=== PATIENT | female | born 1975 | race Two or more races ===

== ENCOUNTER 2018-07-28 12:17 | Emergency (ER) | payer MEDICAID ==
[~2018-07-28] VITALS: Ht 152.4 cm; Wt 74.8 kg
[2018-07-28 12:55] VITALS: BP 115/74
--- NOTE | 2018-07-28 12:58 | NUR ---
ED Nurse Note:eval by wesley rain. reddened area to scalp noted that pt reports as itching. no drainage noted
--- NOTE | 2018-07-28 13:09 | Emergency Room Report ---
History of Present Illness General Chief Complaint: Skin Rash/Abscess Source: Patient Present Illness HPI 42-year-old female presents to the emergency department complaining of itchy rash that had acute onset on the scalp a day after dying her hair. Patient reports significant itching and scratching over the course of the last few days and now she is noticing red crusted bumps in certain areas. Denies pain. Patient denies fevers or chills she denies recent travel or ill contacts with similar symptoms. Pt. denies fevers, chills or swollen tender lymph nodes. Denies lesions/rashes elsewhere on the body. Denies new medications or body washes or creams. Denies swelling of the lips, tongue , throat or airway. Denies wheezing, or shortness of breath. Denies recent travel, recent illness or ill contacts. denies blisters, oral lesions, or sloughing of the skin Allergies: Coded Allergies: No Known Allergies (Unverified , 07/28/18) Patient History Past Medical History: see triage record Past Surgical History: none Pertinent Family History: none Immunizations: UTD Reviewed Nursing Documentation: PMH: Agreed; PSxH: Agreed Nursing Documentation-PMH Past Medical History: No Stated History Review of Systems All Other Systems: negative except mentioned in HPI Physical Exam Vital Signs Date Time Temp Pulse Resp B/P (MAP) Pulse Ox O2 Delivery O2 Flow Rate FiO2 07/28/18 12:30 97.5 69 14 115/74 95 Room Air Sp02 EP Interpretation: reviewed, normal General Appearance: no apparent distress, alert, GCS 15, non-toxic Head: normocephalic, atraumatic, other - Scalp rash of pruritic plaques and papules, some with crusting, no well defines boarders, generalized, migrating toward forehead and nape of neck, no blisters or vessicles. Eyes: bilateral eye normal inspection, bilateral eye PERRL ENT: hearing grossly normal, normal voice, uvula midline, other - no stridor, no swelling of the lips or tongue Neck: full range of motion Respiratory: chest non-tender, lungs clear, normal breath sounds, speaking full sentences Cardiovascular #1: regular rate, rhythm Musculoskeletal: back normal, gait/station normal, normal range of motion, non- tender Neurologic: alert, oriented x3, responsive, motor strength/tone normal, sensory intact, speech normal, grossly normal Psychiatric: judgement/insight normal Skin: warm/dry, well hydrated, rash - Scalp rash of pruritic plaques and papules, some with crusting, no well defines boarders, generalized, migrating toward forehead and nape of neck, no blisters or vessicles. Lymphatic: no adenopathy Medical Decision Making PA Attestation Dr. Blackwood is my supervising physician whom pt. management has been discussed with. Diagnostic Impression: Primary Impression: Dermatitis Additional Impression: Cellulitis Qualified Codes: L03.811 - Cellulitis of head [any part, except face] ER Course 42-year-old female presents to the emergency department complaining of itchy rash that had acute onset on the scalp a day after dying her hair. Patient reports significant itching and scratching over the course of the last few days and now she is noticing red crusted bumps in certain areas. Denies pain. Patient denies fevers or chills she denies recent travel or ill contacts with similar symptoms. Pt. denies fevers, chills or swollen tender lymph nodes. Denies lesions/rashes elsewhere on the body. Denies new medications or body washes or creams. Denies swelling of the lips, tongue , throat or airway. Denies wheezing, or shortness of breath. Denies recent travel, recent illness or ill contacts. denies blisters, oral lesions, or sloughing of the skin Ddx considered but are not limited to cellulitis, scabies, shingles, varicella, dermatitis, urticaria, eczema, tinea, viral exanthem, SJS Vital signs: are WNL, pt. is afebrile H&PE are most consistent with scalp dermatitis with secondary cellulitis ORDERS: none required at this time, the diagnosis is clinical ED INTERVENTIONS: None required at this time. DISCHARGE: At this time pt. is stable for d/c to home. Will provide printed patient care instructions, and any necessary prescriptions. Care plan and follow up instructions have been discussed with the patient prior to discharge. Last Vital Signs Date Time Temp Pulse Resp B/P (MAP) Pulse Ox O2 Delivery O2 Flow Rate FiO2 07/28/18 12:55 97.5 69 14 115/74 96 Room Air Disposition: HOME, SELF-CARE Condition: Stable Scripts Diphenhydramine Hcl (BENADRYL ALLERGY) 25 Mg Tablet 25 MG PO Q6HR, #20 TAB Prov: Rain Ascencio 07/28/18 Ketoconazole (NIZORAL) 120 Ml Shampoo 10 ML TP DAILY, #120 ML Prov: Rain Ascencio 07/28/18 Cephalexin* (KEFLEX*) 500 Mg Capsule 500 MG ORAL EVERY 12 HOURS for 7 Days, #14 CAP 0 Refills Prov: Rain Ascencio 07/28/18 Prednisone* (PREDNISONE*) 20 Mg Tablet 40 MG ORAL DAILY for 5 Days, #10 TAB Prov: Rain Ascencio 07/28/18 Referrals: [facility],REFERRING (PCP) Patient Instructions: Rash Additional Instructions: Take medications as directed. Follow up with a Primary Care Provider in 3-5 days, even if your symptoms have resolved. DERMATOLOGY EVAL IF SYMPTOMS PERSIST. --Please review list of primary care clinics, if you do not already have a primary care provider Return sooner to ED if new symptoms occur, or current symptoms become worse. Do not drink alcohol, drive, or operate heavy machinery while taking Benadryl as this may cause drowsiness. - Please note that this Emergency Department Report was dictated using [employer]th[employer] guard supervisor technology software, occasionally this can lead to erroneous entry secondary to interpretation by the dictation equipment. Rain Ascencio Jul 28, 2018 13:09
[2018-07-28] MEDS ORDERED: CEPHALEXIN500 MG ORAL (13:11)
[2018-07-28] MEDS ORDERED: BENADRYL ALLERG25 M1 PO (13:11)
[2018-07-28] MEDS ORDERED: PREDNISONE20 MG ORAL (13:11)
[2018-07-28] MEDS ORDERED: NIZORAL120 ML TP (13:11)
[2018-07-28] MEDS ORDERED: Solu-MEDROL 125mg Inj IM ONE (13:15)
[2018-07-28 13:50] VITALS: BP 124/78
--- NOTE | 2018-07-28 13:53 | NUR ---
ER DISCHARGE NOTE: Patient is cleared to be discharged per ERMD, pt is aox4, on room air, with stable vital signs. pt was given dc and prescription instructions, pt was able to verbalize understanding, pt id band removed. pt is able to ambulate with steady gait. pt took all belongings.
== END 2018-07-28 13:53 | disposition home or self-care (01) ==
LOC: EMR 12:55
DX: L30.9 Dermatitis, unspecified (principal); L03.811 Cellulitis of head [any part, except face]
CPT/HCPCS: 96372; 99283; J2930

== ENCOUNTER 2018-08-05 13:31 | Emergency (ER) | payer MEDICAID ==
[~2018-08-05] VITALS: Ht 152.4 cm; Wt 59.0 kg
[~2018-08-05 13:31] MED LIST: BENADRYL ALLERG25 M1 PO; CEPHALEXIN500 MG ORAL; NIZORAL120 ML TP; PREDNISONE20 MG ORAL
--- NOTE | 2018-08-05 14:12 | NUR ---
ED Nurse Note: PT WALKED IN TO ER TODAY FROM HOME. AOX4. PT C/O ITCHY SCALP X 2 WEEKS AGO. PT STATES SHE WAS SEEN AT [facility] ER FOR THE SAME SYMPTOMS AND WAS GIVEN RX FOR ANTIBIOTICS. PT STATES IT HELPED FOR A WHILE BUT ITCHING HAS PERSISTED EVEN AFTER COMPLIANCE WITH ANTIBIOTICS.
[2018-08-05 14:14] VITALS: BP 122/82
--- NOTE | 2018-08-05 14:25 | Emergency Room Report ---
History of Present Illness General Chief Complaint: Skin Rash/Abscess Source: Patient Present Illness HPI 42 YO female presents to the ED c/o Persistent scalp rashes, Pt. was seen 1 weeks ago with a rash which she reports has for the most part resolved, but new onset of different type of rash with clear fluid leaking, burning sensation on the side of her head x 2 days. no fevers or chills, no face, eye or nose involvement. Pt. denies fevers, chills or swollen tender lymph nodes. Denies lesions/rashes elsewhere on the body. Denies new medications or body washes or creams. Denies swelling of the lips, tongue , throat or airway. Denies wheezing , or shortness of breath. Denies recent travel, recent illness or ill contacts. denies blisters, oral lesions, or sloughing of the skin Allergies: Coded Allergies: No Known Allergies (Unverified , 07/28/18) Patient History Past Medical History: see triage record Past Surgical History: none Pertinent Family History: none Last Menstrual Period: 07/16/18 Now: No Reviewed Nursing Documentation: PMH: Agreed; PSxH: Agreed Nursing Documentation-PMH Past Medical History: No History, Except For Review of Systems All Other Systems: negative except mentioned in HPI Physical Exam Vital Signs Date Time Temp Pulse Resp B/P (MAP) Pulse Ox O2 Delivery O2 Flow Rate FiO2 08/05/18 13:36 98.1 81 18 123/78 97 Room Air Sp02 EP Interpretation: reviewed, normal General Appearance: no apparent distress, alert, GCS 15, non-toxic Head: normocephalic, atraumatic Eyes: bilateral eye normal inspection, bilateral eye PERRL ENT: hearing grossly normal, normal voice, other - vessicular rash on the right side of the scalp, clear drainage noted, no crusing, no sloughing of the skin, no purulence. Neck: full range of motion Respiratory: chest non-tender, lungs clear, normal breath sounds, speaking full sentences Cardiovascular #1: regular rate, rhythm Cardiovascular #2: 0 carotid (R), 0 carotid (L), 0 radial (R), 0 radial (L), 0 femoral (R), 0 femoral (L), 0 dorsalis pedis (R), 0 dorsalis pedis (L) Musculoskeletal: back normal, gait/station normal, normal range of motion, non- tender Neurologic: alert, oriented x3, responsive, motor strength/tone normal, sensory intact, speech normal, grossly normal Psychiatric: judgement/insight normal Skin: normal color, warm/dry, well hydrated, rash - vessicular rash on the right side of the scalp, clear drainage noted, no crusing, no sloughing of the skin, no purulence. Lymphatic: no adenopathy Medical Decision Making PA Attestation Dr. foss is my supervising Physician whom patient management has been discussed with. Diagnostic Impression: Primary Impression: Rash and other nonspecific skin eruption Additional Impression: Shingles rash Qualified Codes: B02.9 - Zoster without complications ER Course 42 YO female presents to the ED c/o Persistent scalp rashes, Pt. was seen 1 weeks ago with a rash which she reports has for the most part resolved, but new onset of different type of rash with clear fluid leaking, burning sensation on the side of her head x 2 days. no fevers or chills, no face, eye or nose involvement. Pt. denies fevers, chills or swollen tender lymph nodes. Denies lesions/rashes elsewhere on the body. Denies new medications or body washes or creams. Denies swelling of the lips, tongue , throat or airway. Denies wheezing , or shortness of breath. Denies recent travel, recent illness or ill contacts. denies blisters, oral lesions, or sloughing of the skin Ddx considered but are not limited to cellulitis, scabies, shingles, varicella, dermatitis, urticaria, eczema, tinea, viral exanthem, SJS Vital signs: are WNL, pt. is afebrile H&PE are most consistent with healing dermatitis, with new onset of shingles rash. ORDERS: none required at this time, the diagnosis is clinical ED INTERVENTIONS: N -Hydrocortisone 2.5% cream tp. -I do not identify an emergent condition at this time. With current presentation , pt. is stable for close outpatient follow up and conservative treatment. D/ w pt. to return promptly to ED with worsening or new symptoms.- Pt. verbalizes' understanding and agreement with proposed treatment plan. DISCHARGE: At this time pt. is stable for d/c to home. Will provide printed patient care instructions, and any necessary prescriptions. Care plan and follow up instructions have been discussed with the patient prior to discharge. Last Vital Signs Date Time Temp Pulse Resp B/P (MAP) Pulse Ox O2 Delivery O2 Flow Rate FiO2 08/05/18 14:14 98.2 78 17 122/82 99 Room Air Disposition: HOME, SELF-CARE Condition: Stable Scripts Valacyclovir Hcl* (VALTREX*) 500 Mg Tablet 500 MG ORAL THREE TIMES A DAY for 10 Days, #30 TAB 0 Refills Prov: Rain Ascencio 08/05/18 Patient Instructions: Rash, Shingles, Pfeb-rh-Sucw Additional Instructions: Take medications as directed. Follow up with a Primary Care Provider in 3-5 days, even if your symptoms have resolved. --Please review list of primary care clinics, if you do not already have a primary care provider Return sooner to ED if new symptoms occur, or current symptoms become worse. - Please note that this Emergency Department Report was dictated using [employer] support engineer technology software, occasionally this can lead to erroneous entry secondary to interpretation by the dictation equipment. Rain Ascencio Aug 05, 2018 14:25
[2018-08-05] MEDS ORDERED: VALTREX500 MG ORAL (14:26)
[2018-08-05] MEDS ORDERED: Hydrocortisone 2.5% Oint 30gm TOPIC SCH (14:30)
--- NOTE | 2018-08-05 14:32 | NUR ---
ED Nurse Note: PT SITTING PEACEFULLY IN BED IN NAD. AOX4. PRESCRIPTIONS AND DISCHARGE PAPERWORK EXPLAINED TO PT. PT VERBALIZES UNDERSTANDING AND ALL QUESTIONS ANSWERED. PRESCRIPTIONS AND DISCHARGE PAPERWORK GIVEN TO PT AND ID WRISTBAND REMOVED. PT WALKED OUT OF ER WITH STEADY GAIT AND ALL BELONGINGS.
[2018-08-05 14:33] VITALS: BP 121/86
== END 2018-08-05 14:34 | disposition home or self-care (01) ==
LOC: EMR 14:05
DX: B02.9 Zoster without complications (principal)
CPT/HCPCS: 99282